=== PATIENT | female | born 1975 | race Caucasian/White ===

== ENCOUNTER 2021-01-09 14:13 | Emergency (ER) | payer OTHER ==
[2021-01-09 15:43] LABS: HEMOGLOBIN 13.8 gm/dl (12.3-15.3); RED BLOOD COUNT 4.78 M/UL (4.00-5.10); WHITE BLOOD COUNT 8.5 K/UL (4.5-11.0)
[2021-01-09 16:03] LABS: BUN/CREATININE RATIO 22 (0-10)
[2021-01-09] MEDS ORDERED: VENTOLIN HFA 66.7 GM INH (20:43)
[2021-01-09] MEDS ORDERED: ZOFRAN ODT 4 MG4 MG SL (20:43)
[2021-01-09] MEDS ORDERED: IBUPROFEN600 MG PO (20:43)
== END 2021-01-09 20:50 | disposition home or self-care (01) ==
LOC: ER1 14:13
PROVIDERS: Physician Assistant Medical
DX: B34.9 Viral infection, unspecified (principal); F17.200 Nicotine dependence, unspecified, uncomplicated; Z90.49 Acquired absence of other specified parts of digestive tract; Z90.89 Acquired absence of other organs; Z79.899 Other long term (current) drug therapy; Z20.822 Contact with and (suspected) exposure to COVID-19
CPT/HCPCS: 71045; 80053; 82550; 82553; 83874; 84484; 84703; 85025; 87081; 87880; 93005; 96374; 96375; 99285; J1100; J1885; U0002